=== PATIENT | female | born 1970 | race Caucasian/White ===

== ENCOUNTER → 2016-12-22 | Day surgery (SDC) | payer OTHER ==
--- NOTE | 2016-12-21 21:28 | HHI.HP ---
HPI Chief Complaint Abnormal uterine bleeding, menorrhagia, fibroids, bicornuate uterus Date Seen: Dec 22, 2016 Travel History International Travel<30 Days: No Contact w/Intl Traveler<30Days: No Known Affected Area: No History of Present Illness HPI Patient is a 46 year old female with a long standing history of heavy menstrual flow. Recently, she also developed abnormal uterine bleeding. 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 The patient has requested definitive surgical treatment. She is admitted for hysterectomy with removal of ovaries. Para: 0 : 1 Miscarriage: 1 : 0 History Past Medical History Narrative Medical Sleep apnea External hemorrhoids Depression Migraine headaches Obstetric History Obstetric History Patient has history of infertility. She had only one and one early miscarriage Past Surgical History Narrative Surgical T&A in 1979 Family History Narrative Family History Father = pancreatic cancer and DM Social History Alcohol Use: No Tobacco Use: No Substance Abuse: No Allergies-Medications (Allergen,Severity, Reaction): Coded Allergies: Benadryl (Verified Allergy, Unknown, 12/21/16) Narrative Medication Fluoxetine 40 mg PO QD Review of Systems General / Constitutional: No: Fever, Weight Gain, Chills, Other Eyes: No: Diploplia, Blurred Vision, Visual changes, Pain, Photophobia HENT: No: Headaches, Vertigo, Lightheadedness Cardiovascular: No: Irregular Rhythm, Chest Pain or Discomfort, Palpitations, Tachycardia, Syncope, Varicosities, Edema, Cyanosis Respiratory: No: Cough, Short of Breath, Other Gastrointestinal: No: Nausea, Vomiting, Diarrhea Genitourinary: Pelvic Pain, Menorrhagia, Vaginal Bleeding, No: Decreased Urinary Output, Oliguria Musculoskeletal: No: Limited ROM, Weakness, Cramping, Edema, Pain Skin: No Rash, No Itching, No Dryness, No Lumps, No Change in Pigmentation, No Change in Nails, No Alopecia, No Lesions Neurologic: No: Weakness, Dizziness, Syncope, Focal Abnormalities, Coordination Problem, Headache, Slurred Speech, Seizures Psychiatric: No: Depression, Suicidal Ideations, Homicidal Ideation Endocrine: No: Heat Intolerance, Cold Intolerance, Polydipsia, Polyuria, Other Physical Exam Narrative GENERAL: Well-nourished, well-developed patient. SKIN: Warm and dry. HEAD: Normocephalic and atraumatic. EYES: No scleral icterus. No injection or drainage. ENT: No nasal drainage noted. Mucous membranes pink. Airway patent. NECK: Supple, trachea midline. No JVD. CARDIOVASCULAR: Regular rate and rhythm without murmurs, gallops, or rubs. RESPIRATORY: Breath sounds equal bilaterally. No accessory muscle use. BREASTS: Bilateral exam showed no masses , no retractions, no nipple discharge. ABDOMEN/GI: Abdomen soft, non-tender, bowel sounds present, no rebound, no guarding GENITOURINARY: External Genitalia: intact and normal in appearance Uterus: somewhat enlarged, no adnexal masses EXTREMITIES: No cyanosis or edema. BACK: Nontender without obvious deformity. No CVA tenderness. NEUROLOGICAL: Awake and alert. Motor and sensory grossly within normal limits. Five out of 5 muscle strength in all muscle groups. Normal speech. Data Data Vital Signs Reviewed: Yes Assessment/Plan Problem List: (1) DUB (dysfunctional uterine bleeding) (2) Menorrhagia (3) Fibroids, intramural (4) Uterus, bicornuate Assessment and Plan 1. admit for supracervical hysterectomy, bilateral salpingo-oophorectomy 2. discussed the R/B/A of the procedure: bleeding, infection, damage to internal organs (bowel, bladder, nerves, ureters, vessels) as well damage to vaginal durham 3, discussed the R/B/A of leaving the ovaries in situ vs. surgical menopause; patient wishes to have ovaries removed 4. informed consent was obtained after patient's questions were answered; she verbalized understanding Radha Caceres MD Dec 21, 2016 21:28
[~2016-12-22] MED LIST: BUPIVACAINE/EPINEPHRINE 0.25% 50 ML VIAL ONE; LACTATED RINGER'S 1,000 ML BAG IV ONE; LACTATED RINGER'S 1000 ML INJ 1,000 ML ONE; MEPERIDINE HCL 50 MG/ML VIAL ONE; METHYLENE BLUE 100 MG/10 ML VIAL ONE; MIDAZOLAM HCL 2 MG/2 ML VIAL ONE; MORPHINE SULFATE 4 MG/ML INJ ONE; ONDANSETRON HCL 4 MG/2 ML VIAL IV PUSH ONE; PROPOFOL 200 MG/20 ML AMP IV ONE; ceFAZolin 2 GM PREMIX 50 ML ONE; oxyCODONE/ACETAMINOPHEN 5 MG/325 MG TAB ONE
--- NOTE | 2016-12-24 10:58 | PD.OP ---
Operative Report Date of Surgery: Dec 22, 2016 Preoperative Diagnosis: (1) DUB (dysfunctional uterine bleeding) (2) Menorrhagia (3) Fibroids, intramural (4) Uterus, bicornuate Postoperative Diagnosis: (1) DUB (dysfunctional uterine bleeding) (2) Menorrhagia (3) Fibroids, intramural (4) Uterus, bicornuate (5) Adnexal adhesions (6) Abdominal adhesions Procedure: 1. laparoscopic supracervical hysterectomy 2. lysis of adhesions 3. bilateral salpingo-oophorectomy Anesthesia: General Surgeon: Radha Caceres Window Treatment Installer(s): Staff Operation and Findings: IVF: 1168 ml LR + IV antibiotics given prior to surgery + Methylene blue given during surgery UO: 100 ml EBL: less than 100 ml Findings: 1. extensive abdominal and adnexal adhesions (including liver adhesions usually associated with PID) 2. normal ovaries 3. bilateral hydrosalpinx 4. very large fibroid at the fundus Specimens: 1. uterus 2. ovaries 3. fallopian tubes Complications: none Condition: stable Disposition: PACU Descriptions of the procedure: I discussed the risks, benefits and alternatives of the procedure with the patient. Informed consent was obtained after her questions were answered. She was then taken to the operating room with her IV running. She was placed in the supine position and was given general anesthesia without difficulties or complications. She was then placed in the dorsal lithotomy position and was prepped and draped in the usual sterile fashion. Attention was first turned to the patient's genital area. A bivalved speculum was introduced inside the patient's vagina. The anterior aspect of the cervix was grasped with a single tooth tenaculum for manipulation. The cervix was carefully dilated, electrocauterized with the Bovie and a uterine manipulator was carefully introduced inside the uterus. The genital area was then covered with a sterile blue towel. The surgeon changed gloves and attention was then turned to the patient's abdomen. A vertical umbilical incision was made with the scalpel. A 5 mm trocar with introduced inside the patient's abdomen under direct visualization. A pneumo-peritoneum was created with CO2 gas. Two 5 mm trocars and one 10 mm trocar were introduced inside the patient's abdomen under direct visualization in the lower right, mid, and left abdomen. A survey of the patient's abdomen revealed extensive abdominal adhesions involving the bowel and the liver. A survey of the patient's pelvis revealed the findings noted above. First, careful lysis of adhesions was done to return the anatomy to normal in order to proceed with the surgical procedure. The round ligaments were identified, electrocauterized and transected with Thunderbeat scalpel. Excellent hemostasis was noted. Next, the utero-ovarian ligaments were serially grasped, electrocauterized and transected with the Thunderbeat scalpel. Excellent hemostasis was noted. The tissues along the uterus on both sides were serially grasped, electrocauterized and transected with the Thunderbeat scalpel. The ureters were noted to be away from the surgical site. The uterine vessels were skeletonized, electrocauterized and transected with the Thunderbeat scalpel. Good hemostasis was noted. Next, the bladder flap was created and the bladder was dissected off the lower uterine segment. Excellent hemostasis was noted. The uterine manipulator was removed. The cervix was transected at the cervico- uterine junction with the Elisa loop. Good hemostasis was noted. The endocervix was electrocauterized with the Harmonic scalpel. The morcellator was placed inside the patient's abdomen under direct visualization. The uterus was carefully dissected and removed from the abdomen and sent to pathology. Care was taken to remove all of the small pieces of tissue left in the abdomen and pelvis. Copious irrigation was done. Again, lysis of adhesions was needed in both adnexa in order to continue with the surgery. The IP ligaments were electrocauterized and transected with Thunderbeat scalpel. Good hemostasis was noted. Copious irrigation was done. All surgical sites were noted to be hemostatic. All instruments were removed from patient's abdomen. The trocars were removed under direct visualization and the sites were noted to be hemostatic. The CO2 gas was carefully expressed out of the patient's abdomen. The fascia under the 10 mm incision was reapproximated with a figure eight stitch of 0-Vicryl. The subcutaneous tissues were injected with 0.5 % Marcaine. The skin incisions were reapproximated with subcutaneous stitches using 4-0 Vicryl. Mastisol and steri strips were placed over the incisions. The patient tolerated the procedure well. She was successfully extubated and transferred to PACU in stable condition. NOTE: I discussed the surgical procedures and surgical findings with patient's sister; her questions were answered; she verbalized understanding and agreement to the procedures done. Radha Caceres MD Dec 24, 2016 10:58
== END | disposition home or self-care (01) ==
LOC: ESDC 06:24
PROVIDERS: ATTEND Obstetrics & Gynecology
DX: N92.0 Excessive and frequent menstruation with regular cycle (principal); N93.8 Other specified abnormal uterine and vaginal bleeding; D25.1 Intramural leiomyoma of uterus; N73.6 Female pelvic peritoneal adhesions (postinfective)
CPT/HCPCS: 00840; 58542; 88307; C1765; J0690; J2175; J2250; J2270; J2405; J3010; J7120